=== PATIENT | male | born 1940 | race Caucasian/White ===

== ENCOUNTER → 2017-11-02 | Outpatient (CLI) | payer OTHER | LOC: BMCIMAGING 12:59 | PROVIDERS: ATTEND Orthopaedic Surgery | DX: M06.841 Other specified rheumatoid arthritis, right hand (principal); M06.842 Other specified rheumatoid arthritis, left hand; M25.562 Pain in left knee; M25.552 Pain in left hip; Z96.641 Presence of right artificial hip joint; Z96.642 Presence of left artificial hip joint ==

== ENCOUNTER → 2018-05-26 | Outpatient (CLI) | payer OTHER | LOC: BMCIMAGING 10:14 | PROVIDERS: ATTEND Podiatrist | DX: M20.42 Other hammer toe(s) (acquired), left foot (principal); M20.12 Hallux valgus (acquired), left foot; M77.32 Calcaneal spur, left foot ==

== ENCOUNTER → 2018-11-29 | Outpatient (CLI) | payer OTHER | LOC: BMCIMAGING 14:45 | PROVIDERS: ATTEND Internal Medicine Rheumatology | DX: M05.6 Rheumatoid arthritis with involvement of other organs and systems (principal) ==

== ENCOUNTER → 2018-12-05 | Outpatient (CLI) | payer OTHER | LOC: BMCIMAGING 14:54 | PROVIDERS: ATTEND Internal Medicine Rheumatology | DX: Z13.820 Encounter for screening for osteoporosis (principal); M81.0 Age-related osteoporosis without current pathological fracture; Z87.311 Personal history of (healed) other pathological fracture ==